=== PATIENT | male | born 1990 ===

== ENCOUNTER 2019-05-01 20:52 | Emergency (ER) | payer SELFPAY ==
[~2019-05-01] VITALS: Ht 180.3 cm; Wt 75.0 kg
[2019-05-01 21:10] VITALS: BP 132/74
--- NOTE | 2019-05-01 21:41 | NUR ---
Call placed to number on file after attempting to Rm 3 times. Left message expressing concern for Pt.'s wellbeing and encouraged him to return for Evaluation. Dr. Wilkes informed.
== END 2019-05-01 21:43 | disposition left against medical advice (07) ==
LOC: ER 20:53
DX: R21 Rash and other nonspecific skin eruption (principal); M54.9 Dorsalgia, unspecified; Z53.21 Procedure and treatment not carried out due to patient leaving prior to being seen by health care provider